=== PATIENT | male | born 1970 | race Two or more races ===

== ENCOUNTER 2023-10-10 09:16 | Emergency (ER) | payer OTHER ==
[~2023-10-10] VITALS: Ht 162.6 cm; Wt 78.2 kg
[2023-10-10 09:21] VITALS: BP 151/87; PULSE 98; RESP 18; TEMP 98.4
[2023-10-10] MEDS ORDERED: LISI-893 PO (09:21)
[2023-10-10] MEDS: ACETAMINOPHEN 500 MG TABLET PO ONE (10:49)
[2023-10-10] MEDS: CEPHALEXIN MONOHYDRATE 500 MG CAPSULE PO ONE (10:49)
[2023-10-10] MEDS: SULFAMETHOX/TRIMETH DS 800-160 MG/TABLET PO ONE (10:49)
== END 2023-10-10 11:03 | disposition home or self-care (01) ==
LOC: EMS 09:16
DX: L03.032 Cellulitis of left toe (principal); I10 Essential (primary) hypertension
CPT/HCPCS: 99284